=== PATIENT | female | born 1965 | race Caucasian/White ===

== ENCOUNTER 2016-05-02 18:49 | Emergency (ER) | payer OTHER ==
[~2016-05-02] VITALS: Ht 154.9 cm; Wt 91.4 kg
[~2016-05-02 18:49] MED LIST: FLUO10CA48 PO; FLUO40CA8 PO; IBUP-1277 PO; RISP0.5T10 PO; RISP2TAB22 PO
[2016-05-02 19:13] VITALS: TEMP 36.8; Ht 154.9 cm; Wt 91.4 kg
[2016-05-02] MEDS ORDERED: ONDANSETRON INJ 2 MG/ML 2 ML VIAL IV STA (21:07)
[2016-05-02] MEDS ORDERED: PANTOprazole SOD 40 MG TAB PO STA (21:07)
[2016-05-02] MEDS ORDERED: SODIUM CHLORIDE 0.9% 1000ML 1,000 ML IV STA (21:07)
[2016-05-02] MEDS ORDERED: PRLSR20 PO ×2 (21:15→23:13)
--- NOTE | 2016-05-02 21:15 | EMERGENCY ROOM VISIT NOTE ---
History Report prepared by Sarah: Abran De Under the Supervision of: Dr. Valeria Aguirre M.D. First contact with patient: 20:50 Chief Complaint: ABDOMINAL PAIN Stated Complaint: GUT PAIN, VOMITING Nursing Triage Summary: pt c/o abd pain with n/v/d for past 3 months History of Present Illness The patient is a 50 year old female who presents to the Emergency Room with complaints of persistent vomiting that began three months prior to arrival. The patient states that she has had difficulty keeping food down for the past three months. She is also experiencing sharp pains in her upper abdomen, which worsens after eating. She came to the ER tonight because her dry heaving was worsening significantly. She takes 20 mg of Prilosec OTC daily for gastroesophageal reflux disease. The patient is a smoker. 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 A total of 10 systems reviewed and were otherwise negative. Past Medical & Surgical Medical Problems: (1) Bipolar disorder Family History Cancer Diabetes mellitus Gallbladder disease Heart disease Hypertension Lung disease Social History Smoking Status: Current Every Day Smoker Drug Use: none Marital Status: Housing Status: lives with family Current/Historical Medications Scheduled Omeprazole (Prilosec), 20 MG PO DAILY Omeprazole (Prilosec), 20 MG PO BID Ranitidine (Zantac), 150 MG PO BID Scheduled PRN Ibuprofen (Advil), 400-800 MG PO Q6H PRN for Pain or Fever Allergies Coded Allergies: Aspirin (Verified Allergy, Mild, 01/31/16) Penicillins (Verified Allergy, Mild, 01/31/16) Physical Exam Vital Signs Date Time Temp Pulse Resp B/P Pulse Ox O2 Delivery O2 Flow Rate FiO2 05/02/16 22:34 69 16 127/75 96 Room Air 05/02/16 21:23 79 16 126/91 98 Room Air 05/02/16 19:13 36.8 71 18 142/95 95 Room Air Physical Exam Vital signs reviewed. General: Well-appearing middle age woman, in no significant distress. HEENT: No scleral icterus, PERRLA, neck supple. Atraumatic. Cardiovascular: Regular rate and rhythm, no extra sounds. Pulmonary: Clear to auscultation bilaterally, normal work of breathing. Abdomen: Mild epigastric abdominal tenderness, obese abdomen. Positive bowel sounds. Musculoskeletal: Atraumatic, no peripheral edema. Neurologic: Patient awake alert and oriented x 3, full strength in all 4 extremities. Cranial nerves 2 through 12 grossly intact. Skin: Warm, dry, no rash Medical Decision & Procedures ER Provider Diagnostic Interpretation: X-ray results as stated below per my interpretation and radiologist interpretation. Other radiology results as stated below per my review and radiologist interpretation: BILIARY ULTRASOUND CLINICAL HISTORY: RUQ pain, vomiting COMPARISON STUDY: 11/18/2014 FINDINGS: The pancreas appears sonographically normal. The liver is of increased echogenicity, a finding most often seen in hepatic steatosis. No focal hepatic masses are visualized. There is no right-sided hydronephrosis. The common bile duct measures 6 mm. No gallstones are visualized. IMPRESSION: 1. Ultrasonographically pancreas 2. Hepatic steatosis 3. No evidence of pathologic ductal dilatation 4. No gallstones identified. No gallbladder wall thickening. Negative sonographic Harris sign. Electronically signed by: Yassine Gibson M.D. 05/02/2016 10:38 PM Dictated Date/Time: 05/02/2016 10:35 PM Laboratory Results 05/02/16 21:20 Red Blood Count 4.51, Mean Corpuscular Volume 90.2, Mean Corpuscular Hemoglobin 31.0, Mean Corpuscular Hemoglobin Concent 34.4, Mean Platelet Volume 10.1, Neutrophils (%) (Auto) 50.3, Lymphocytes (%) (Auto) 39.4, Monocytes (%) (Auto) 6.9, Eosinophils (%) (Auto) 2.6, Basophils (%) (Auto) 0.7, Neutrophils # (Auto) 4.50, Lymphocytes # (Auto) 3.53, Monocytes # (Auto) 0.62, Eosinophils # (Auto) 0.23, Basophils # (Auto) 0.06 05/02/16 21:20 Test 05/02/16 19:55 05/02/16 21:20 Urine Color YELLOW Urine Appearance CLEAR (CLEAR) Urine pH 6.5 (4.5-7.5) Urine Specific [place] 1.010 (1.000-1.030) Urine Protein NEG (NEG) Urine Glucose (UA) NEG (NEG) Urine Ketones NEG (NEG) Urine Occult Blood TRACE (NEG) Urine Nitrite NEG (NEG) Urine Bilirubin NEG (NEG) Urine Urobilinogen NEG (NEG) Urine Leukocyte Esterase NEG (NEG) Urine WBC (Auto) 1-5 /hpf (0-5) Urine RBC (Auto) 0-4 /hpf (0-4) Urine Hyaline Casts (Auto) 0 /lpf (0-5) Urine Epithelial Cells (Auto) >30 /lpf (0-5) Urine Bacteria (Auto) NEG (NEG) White Blood Count 8.95 K/uL (4.8-10.8) Red Blood Count 4.51 M/uL (4.2-5.4) Hemoglobin 14.0 g/dL (12.0-16.0) Hematocrit 40.7 % (37-47) Mean Corpuscular Volume 90.2 fL (80-100) Mean Corpuscular Hemoglobin 31.0 pg (25-34) Mean Corpuscular Hemoglobin Concent 34.4 g/dl (32-36) Platelet Count 270 K/uL (130-400) Mean Platelet Volume 10.1 fL (7.4-10.4) Neutrophils (%) (Auto) 50.3 % Lymphocytes (%) (Auto) 39.4 % Monocytes (%) (Auto) 6.9 % Eosinophils (%) (Auto) 2.6 % Basophils (%) (Auto) 0.7 % Neutrophils # (Auto) 4.50 K/uL (1.4-6.5) Lymphocytes # (Auto) 3.53 K/uL (1.2-3.4) Monocytes # (Auto) 0.62 K/uL (0.11-0.59) Eosinophils # (Auto) 0.23 K/uL (0-0.5) Basophils # (Auto) 0.06 K/uL (0-0.2) RDW Standard Deviation 40.4 fL (36.4-46.3) RDW Coefficient of Variation 12.2 % (11.5-14.5) Immature Granulocyte % (Auto) 0.1 % Immature Granulocyte # (Auto) 0.01 K/uL (0.00-0.02) Anion Gap 11.0 mmol/L (3-11) Est Creatinine Clear Calc Drug Dose 78.8 ml/min Estimated GFR () 89.4 Estimated GFR (Non- 77.1 BUN/Creatinine Ratio 10.2 (10-20) Calcium Level 9.5 mg/dl (8.5-10.1) Magnesium Level 2.0 mg/dl (1.8-2.4) Total Bilirubin 0.2 mg/dl (0.2-1) Direct Bilirubin < 0.1 mg/dl (0-0.2) Aspartate Amino Transf (AST/SGOT) 22 U/L (15-37) Alanine Aminotransferase (ALT/SGPT) 36 U/L (12-78) Alkaline Phosphatase 77 U/L (45-117) Total Protein 7.6 gm/dl (6.4-8.2) Albumin 3.8 gm/dl (3.4-5.0) Lipase 94 U/L (73-393) Laboratory results per my review. Medications Administered Medications (Trade) Dose Ordered Sig/Jhonathan Route Start Time Stop Time Status Last Admin Dose Admin Sodium Chloride (Nss 1000ml) 1,000 ml @ 999 mls/hr Q1H1M STAT IV 05/02/16 21:07 05/02/16 22:07 DC 05/02/16 21:26 999 MLS/HR Ondansetron HCl (Zofran Inj) 4 mg NOW STAT IV 05/02/16 21:07 05/02/16 21:10 DC 05/02/16 21:29 4 MG Pantoprazole Sodium (Protonix Tab) 40 mg NOW STAT PO 05/02/16 21:07 05/02/16 21:10 DC 05/02/16 21:29 40 MG ED Course 2058: Past medical records reviewed. The patient was evaluated in room A10. A complete history and physical examination was performed. 2106: Ordered Pantoprazole 40 mg PO, Zofran 4 mg IV, Sodium Chloride 1000 mL @ 999 mL/hr IV. 1: Upon reevaluation, the patient appeared to have improvement of her symptoms. I discussed findings with her. She verbalized agreement of the treatment plan. The patient was discharged home. Medical Decision The patient's history was concerning for abdominal pain. Differential diagnosis: Etiologies such as appendicitis, diverticulitis, PUD, biliary pathology, UTI, pancreatitis, obstruction, mesenteric ischemia, aortic pathology, infections, inflammatory bowel disease, renal colic, as well as others were entertained. This patient was evaluated and appeared to be in no significant distress. IV access was obtained and laboratory work was drawn. Ultrasound of right upper quadrant reveals no evidence of acute cholecystitis. Patient was hydrated with normal saline solution and given IV Zofran for her nausea. Patient's laboratory work is fairly unrevealing, urinalysis is negative. Patient was placed on Protonix 40 mg daily. She was given her first dose in the emergency department. Patient was advised to follow-up with [facility] as scheduled. She will increase her Prilosec to 20 mg twice daily. She'll follow-up with gastroenterology as needed for upper endoscopy. Patient will return to the ER for worsening of symptoms or any medical concerns. Impression Primary Impression: Gastritis Scribe Attestation The scribe's documentation has been prepared under my direction and personally reviewed by me in its entirety. I confirm that the note above accurately reflects all work, treatment, procedures, and medical decision making performed by me. Departure Information Dispostion Home / Self-Care Prescriptions Ranitidine (Zantac) 150 Mg Tab 150 MG PO BID, #60 TAB Prov: Valeria Aguirre M.D. 05/02/16 Omeprazole (Prilosec) 20 Mg Capcr 20 MG PO BID, #60 CAP Prov: Valeria Aguirre M.D. 05/02/16 Referrals No Doctor, Assigned (PCP) Forms Call Back Authorization, HOME CARE DOCUMENTATION FORM, IMPORTANT VISIT INFORMATION Patient Instructions [facility] Additional Instructions Diagnosis: Gastritis Increase your Prilosec to 20 mg twice daily. Zantac 300 mg twice daily as needed for continued symptoms. Avoid alcohol, coffee, soda, spicy or greasy foods. Follow-up with [facility] as scheduled this week for reevaluation. You will likely require gastroenterology referral. Return to the emergency department for worsening of symptoms or any medical concerns. Problem Qualifiers Primary Impression: Gastritis Gastritis type: unspecified gastritis Chronicity: acute Gastritis bleeding : without bleeding Qualified Codes: K29.00 - Acute gastritis without bleeding
[2016-05-02 21:23] LABS: MANUAL MICROSCOPIC REQUIRED? NO; REVIEW REQ? NO; URINE APPEARANCE CLEAR (CLEAR); URINE BILIRUBIN NEG (NEG); URINE COLOR YELLOW; URINE EPITHELIAL CELL AUTO >30 /lpf (0-5); URINE NITRITE NEG (NEG); URINE PH 6.5 (4.5-7.5); UROBILINOGEN NEG (NEG); ZZUR CULT IF INDIC CLEAN CATCH NO
[2016-05-02 21:40] LABS: BASO % 0.7 %; BASO ABS # 0.06 K/uL (0-0.2); COMPLETE YES; EOS % 2.6 %; HEMATOCRIT 40.7 % (37-47); IG% 0.1 %; LYMPH % 39.4 %; LYMPH ABS # 3.53 K/uL (1.2-3.4); MEAN CELL VOLUME 90.2 fL (80-100); MEAN CORPUSCULAR HGB CONC 34.4 g/dl (32-36); MEAN PLATELET VOLUME 10.1 fL (7.4-10.4); MONO % 6.9 %; NEUT % 50.3 %; PLATELET COUNT 270 K/uL (130-400); RED BLOOD COUNT 4.51 M/uL (4.2-5.4); WHITE BLOOD COUNT 8.95 K/uL (4.8-10.8)
[2016-05-02 22:13] LABS: ALT/SGPT 36 U/L (12-78); BLOOD UREA NITROGEN 9 mg/dl (7-18); BUN/CREATININE RATIO 10.2 (10-20); CALCIUM 9.5 mg/dl (8.5-10.1); CARBON DIOXIDE 26 mmol/L (21-32); CHLORIDE 106 mmol/L (98-107); CREATININE 0.87 mg/dl (0.60-1.20); GLUCOSE 91 mg/dl (70-99); POTASSIUM 3.8 mmol/L (3.5-5.1); SODIUM 143 mmol/L (136-145)
[2016-05-02 22:16] LABS: ALKALINE PHOSPHATASE 77 U/L (45-117); AST/SGOT 22 U/L (15-37)
[2016-05-02 22:34] VITALS: BP 127/75; PULSE 69; O2SAT 96
--- NOTE | 2016-05-02 22:40 | DIAGNOSTIC IMAGING REPORT ---
BILIARY ULTRASOUND CLINICAL HISTORY: RUQ pain, vomiting COMPARISON STUDY: 11/18/2014 FINDINGS: The pancreas appears sonographically normal. The liver is of increased echogenicity, a finding most often seen in hepatic steatosis. No focal hepatic masses are visualized. There is no right-sided hydronephrosis. The common bile duct measures 6 mm. No gallstones are visualized. IMPRESSION: 1. Ultrasonographically pancreas 2. Hepatic steatosis 3. No evidence of pathologic ductal dilatation 4. No gallstones identified. No gallbladder wall thickening. Negative sonographic Harris sign. Electronically signed by: Yassine Gibson M.D. 05/02/2016 10:38 PM Dictated Date/Time: 05/02/2016 10:35 PM
[2016-05-02] MEDS ORDERED: ZNTT/150 PO (23:13)
== END 2016-05-02 23:21 | disposition home or self-care (01) ==
LOC: C.EDB 18:50 → C.EDA 23:21
DX: K29.00 Acute gastritis without bleeding (principal); K21.9 Gastro-esophageal reflux disease without esophagitis; F31.9 Bipolar disorder, unspecified; F17.200 Nicotine dependence, unspecified, uncomplicated; Z83.3 Family history of diabetes mellitus; Z82.49 Family history of ischemic heart disease and other diseases of the circulatory system

== ENCOUNTER 2017-07-21 11:19 | Emergency (ER) | payer OTHER ==
[~2017-07-21] VITALS: Ht 157.5 cm; Wt 85.8 kg
[~2017-07-21 11:19] MED LIST changes: -FLUO10CA48 PO; -FLUO40CA8 PO; +PRLSR20 PO; -RISP0.5T10 PO; -RISP2TAB22 PO
[2017-07-21 11:32] VITALS: TEMP 36.4; Ht 157.5 cm; Wt 85.8 kg
[2017-07-21] MEDS ORDERED: SODIUM CHLORIDE 0.9% 1000ML 1,000 ML IV STA (12:17)
[2017-07-21] MEDS ORDERED: MoRPHine SULFATE 4 MG/ML 1 ML CARP\\VIAL IV STA (12:17)
[2017-07-21] MEDS ORDERED: ONDANSETRON INJ 2 MG/ML 2 ML VIAL IV STA ×2 (12:17→15:04)
[2017-07-21] MEDS ORDERED: OPTIRAY 320 IV PRN (12:30)
[2017-07-21 12:40] LABS: BASO % 0.6 %; BASO ABS # 0.05 K/uL (0-0.2); EOS % 2.2 %; EOS ABS # 0.17 K/uL (0-0.5); HEMOGLOBIN 13.5 g/dL (12.0-16.0); IG# 0.02 K/uL (0.00-0.02); LYMPH % 37.2 %; MEAN CELL VOLUME 89.9 fL (80-100); MEAN CORPUSCULAR HEMOGLOBIN 31.1 pg (25-34); MEAN CORPUSCULAR HGB CONC 34.6 g/dl (32-36); MEAN PLATELET VOLUME 9.8 fL (7.4-10.4); MONO % 6.9 %; MONO ABS # 0.54 K/uL (0.11-0.59); NEUT % 52.8 %; NEUT ABS # 4.12 K/uL (1.4-6.5); PLATELET COUNT 250 K/uL (130-400); RED CELL DISTRIBUTION WIDTH CV 12.6 % (11.5-14.5); RED CELL DISTRIBUTION WIDTH SD 41.7 fL (36.4-46.3)
[2017-07-21 13:00] LABS: ALBUMIN 4.1 gm/dl (3.4-5.0); CALCIUM 9.4 mg/dl (8.5-10.1); CREATININE 0.95 mg/dl (0.60-1.20); POTASSIUM 3.6 mmol/L (3.5-5.1)
[2017-07-21 13:03] LABS: TOTAL PROTEIN 8.1 gm/dl (6.4-8.2)
[2017-07-21 13:30] VITALS: BP 100/71; PULSE 56; O2SAT 100
[2017-07-21] MEDS ORDERED: ACET-1693 PO (13:40)
[2017-07-21] MEDS ORDERED: GABA600T PO (13:41)
[2017-07-21] MEDS ORDERED: DICL-201 PO (13:41)
[2017-07-21] MEDS ORDERED: LOPE2TAB74 PO (13:41)
[2017-07-21] MEDS ORDERED: PRLSR20 PO (13:41)
[2017-07-21] MEDS ORDERED: TOPI100T20 PO (13:41)
[2017-07-21] MEDS ORDERED: ESCI10TA17 PO (13:41)
--- NOTE | 2017-07-21 13:51 | DIAGNOSTIC IMAGING REPORT ---
ABD/PELVIS IV CONTRAST ONLY CLINICAL HISTORY: 52 years-old Female presenting with lower abd pain . TECHNIQUE: Multidetector CT of the abdomen and pelvis was performed after the administration of intravenous contrast. IV contrast: 94 mL of Optiray 320. A dose lowering technique was used consistent with the principles of ALARA (as low as reasonably achievable). COMPARISON: 12/01/2005 and ultrasound from 05/02/2016. CT DOSE (mGy.cm): The estimated cumulative dose is 968.40 mGycm. 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 Lung bases: Minimal basilar opacities, likely atelectasis. Normal heart size. No pericardial or pleural effusion. Liver: Normal morphology. Density suggestive of hepatic steatosis. No focal lesion. Patent hepatic vasculature. Biliary: No intrahepatic or extrahepatic biliary ductal dilatation. Normal gallbladder. Pancreas: Mild parenchymal atrophy. Spleen: Normal. Adrenal glands: Normal. Kidneys and ureters: Well-defined simple appearing 5.4 cm cyst arising from the anterior aspect of the interpolar region of the left kidney. No other renal lesion. No nephrolithiasis. No hydronephrosis. Ureters normal. Bladder: Incompletely evaluated secondary to underdistention. Pelvic organs: Uterus surgically absent. No adnexal masses. Bowel: Mild wall thickening of the rectal junction suggested, nonspecific. The appendix is normal. No bowel obstruction. Peritoneal cavity: No free fluid or intraperitoneal gas. Lymph nodes: No enlarged lymph nodes in the abdomen or pelvis. Vasculature: Atherosclerosis of the normal caliber abdominal aorta. IVC patent. Circumaortic left renal vein. Abdominal wall: Post surgical changes of the midline ventral abdominal wall. Focal fat containing ventral hernia in the epigastrium with a relatively narrow neck, measuring less than 1 cm. The hernia sac is poorly delineated. An additional hernia sac may be present immediately adjacent to this, also containing fat. Focal atrophy of the right rectus abdominis likely at a prior port site. Musculoskeletal: Bone islands noted in the right hemipelvis. Mild degenerative changes in the lower lumbar spine and lower thoracic spine. IMPRESSION: 1. Mild apparent wall thickening of the anorectal junction, nonspecific and possibly due to underdistention of the lower rectum. Remainder of bowel is normal. 2. Fat-containing ventral midline hernias in the epigastrium. No inflammatory changes to suggest strangulation. 3. Hepatic steatosis. Correlate with liver function tests to exclude steatohepatitis as a cause for abdominal pain. Electronically signed by: Kirk Loredo M.D. 07/21/2017 1:50 PM Dictated Date/Time: 07/21/2017 1:41 PM
--- NOTE | 2017-07-21 18:18 | EMERGENCY ROOM VISIT NOTE ---
History Report prepared by Sarah: Gary Kellogg Under the Supervision of: Dr. To Rivers D.O. First contact with patient: 11:50 Chief Complaint: ABDOMINAL PAIN Stated Complaint: ABDOMINAL PAIN History of Present Illness The patient is a 52 year old female who presents to the Emergency Room with complaints of constant lower abdominal pain beginning yesterday. The patient rates her current pain as a 6/10 in severity. She describes her pain as "sharp" . Her pain travels into her right lower abdomen. The patient's pain is improved with bending forward. She also complains of diarrhea and bloody stool. She has a history of chronic diarrhea, and has had it for her entire life (on Imodium AD daily). The patient began noticing bleeding several hours after her pain began yesterday. She has not passed any blood for about 7 hours. She describes the blood as bright red on the toilet paper when she wipes but with blood clots in the stool. The patient only noticed the clots 8 hours ago. She has a known history of hemorrhoids and diverticulosis. Her most recent colonoscopy was a few months ago. The patient has a history of completely hysterectomy. She is not on any blood thinners. Pt denies headache, change in vision, fevers, chest pain, shortness of breath, nausea, vomiting, pain with urination, and melena. Source of History: patient Onset: Yesterday Position: abdomen (lower) Symptom Intensity: 6/10 Quality: sharp Timing: constant Modifying Factors (Relieving): other (bending forward) Associated Symptoms: + hematochezia, + diarrhea, No fevers, No chest pain, No SOB, No nausea, No vomiting, No urinary symptoms Review of Systems See HPI for pertinent positives & negatives. A total of 10 systems reviewed and were otherwise negative. Past Medical & Surgical Medical Problems: (1) Bipolar disorder Family History Cancer Diabetes mellitus Gallbladder disease Heart disease Hypertension Lung disease Social History Smoking Status: Current Every Day Smoker Drug Use: none Marital Status: Housing Status: lives with family Current/Historical Medications Scheduled Diclofenac (Voltaren), 75 MG PO BID Escitalopram (Lexapro), 10 MG PO DAILY Gabapentin (Neurontin), 600 MG PO HS Omeprazole (Prilosec), 20 MG PO DAILY Topiramate (Topamax), 100 MG PO BID Scheduled PRN Acetaminophen Tab (Tylenol), 325 MG PO Q6 PRN for Pain Loperamide Hcl (Loperamide A-D), 2 MG PO QID PRN for Diarrhea Allergies Coded Allergies: Aspirin (Verified Allergy, Mild, 07/21/17) Penicillins (Verified Allergy, Mild, 07/21/17) Physical Exam Vital Signs Date Time Temp Pulse Resp B/P (MAP) Pulse Ox O2 Delivery O2 Flow Rate FiO2 07/21/17 13:30 56 18 100/71 100 Room Air 07/21/17 11:32 36.4 68 20 132/84 97 Room Air Physical Exam GENERAL: Sitting up in bed, disheveled, appears older than stated age. EYE EXAM: normal conjunctiva. OROPHARYNX: no exudate, no erythema, lips, buccal mucosa, and tongue normal and mucous membranes are moist NECK: supple, no nuchal rigidity, no adenopathy, non-tender LUNGS: Clear to auscultation. Normal chest wall mechanics HEART: no murmurs, S1 normal and S2 normal ABDOMEN: abdomen soft, normo-active bowel sounds, no masses, no rebound or guarding. Old midline incisions. Mild diffuse tenderness in abdomen. BACK: Back is symmetrical on inspection and there is no deformity, no midline tenderness, no CVA tenderness. RECTAL: Heme negative stool. No hemorrhoids or fissures. SKIN: no rashes and no bruising UPPER EXTREMITIES: upper extremities are grossly normal. LOWER EXTREMITIES: No pitting edema. NEURO EXAM: Normal sensorium, cranial nerves II-XII grossly intact, normal speech, no gross weakness of arms, no gross weakness of legs. Medical Decision & Procedures ER Provider Diagnostic Interpretation: Radiology results as stated below per my review and the radiologist's interpretation: ABD/PELVIS IV CONTRAST ONLY FINDINGS: [employer]k Attendant topogram: Unremarkable. Lung bases: Minimal basilar opacities, likely atelectasis. Normal heart size. No pericardial or pleural effusion. Liver: Normal morphology. Density suggestive of hepatic steatosis. No focal lesion. Patent hepatic vasculature. Biliary: No intrahepatic or extrahepatic biliary ductal dilatation. Normal gallbladder. Pancreas: Mild parenchymal atrophy. Spleen: Normal. Adrenal glands: Normal. Kidneys and ureters: Well-defined simple appearing 5.4 cm cyst arising from the anterior aspect of the interpolar region of the left kidney. No other renal lesion. No nephrolithiasis. No hydronephrosis. Ureters normal. Bladder: Incompletely evaluated secondary to underdistention. Pelvic organs: Uterus surgically absent. No adnexal masses. Bowel: Mild wall thickening of the rectal junction suggested, nonspecific. The appendix is normal. No bowel obstruction. Peritoneal cavity: No free fluid or intraperitoneal gas. Lymph nodes: No enlarged lymph nodes in the abdomen or pelvis. Vasculature: Atherosclerosis of the normal caliber abdominal aorta. IVC patent. Circumaortic left renal vein. Abdominal wall: Post surgical changes of the midline ventral abdominal wall. Focal fat containing ventral hernia in the epigastrium with a relatively narrow neck, measuring less than 1 cm. The hernia sac is poorly delineated. An additional hernia sac may be present immediately adjacent to this, also containing fat. Focal atrophy of the right rectus abdominis likely at a prior port site. Musculoskeletal: Bone islands noted in the right hemipelvis. Mild degenerative changes in the lower lumbar spine and lower thoracic spine. IMPRESSION: 1. Mild apparent wall thickening of the anorectal junction, nonspecific and possibly due to underdistention of the lower rectum. Remainder of bowel is normal. 2. Fat-containing ventral midline hernias in the epigastrium. No inflammatory changes to suggest strangulation. 3. Hepatic steatosis. Correlate with liver function tests to exclude steatohepatitis as a cause for abdominal pain. Electronically signed by: Kirk Loredo M.D. 07/21/2017 1:50 PM Laboratory Results 07/21/17 12:31 Red Blood Count 4.34, Mean Corpuscular Volume 89.9, Mean Corpuscular Hemoglobin 31.1, Mean Corpuscular Hemoglobin Concent 34.6, Mean Platelet Volume 9.8, Neutrophils (%) (Auto) 52.8, Lymphocytes (%) (Auto) 37.2, Monocytes (%) (Auto) 6.9, Eosinophils (%) (Auto) 2.2, Basophils (%) (Auto) 0.6, Neutrophils # (Auto) 4.12, Lymphocytes # (Auto) 2.90, Monocytes # (Auto) 0.54, Eosinophils # (Auto) 0.17, Basophils # (Auto) 0.05 07/21/17 12:31 Test 07/21/17 12:00 07/21/17 12:31 Urine Color YELLOW Urine Appearance CLEAR (CLEAR) Urine pH 6.5 (4.5-7.5) Urine Specific [place] 1.017 (1.000-1.030) Urine Protein NEG (NEG) Urine Glucose (UA) NEG (NEG) Urine Ketones NEG (NEG) Urine Occult Blood NEG (NEG) Urine Nitrite NEG (NEG) Urine Bilirubin NEG (NEG) Urine Urobilinogen NEG (NEG) Urine Leukocyte Esterase NEG (NEG) Urine WBC (Auto) 1-5 /hpf (0-5) Urine RBC (Auto) 0-4 /hpf (0-4) Urine Hyaline Casts (Auto) 1-5 /lpf (0-5) Urine Epithelial Cells (Auto) 20-30 /lpf (0-5) Urine Bacteria (Auto) NEG (NEG) Urine Test NEG (NEG) White Blood Count 7.80 K/uL (4.8-10.8) Red Blood Count 4.34 M/uL (4.2-5.4) Hemoglobin 13.5 g/dL (12.0-16.0) Hematocrit 39.0 % (37-47) Mean Corpuscular Volume 89.9 fL (80-100) Mean Corpuscular Hemoglobin 31.1 pg (25-34) Mean Corpuscular Hemoglobin Concent 34.6 g/dl (32-36) Platelet Count 250 K/uL (130-400) Mean Platelet Volume 9.8 fL (7.4-10.4) Neutrophils (%) (Auto) 52.8 % Lymphocytes (%) (Auto) 37.2 % Monocytes (%) (Auto) 6.9 % Eosinophils (%) (Auto) 2.2 % Basophils (%) (Auto) 0.6 % Neutrophils # (Auto) 4.12 K/uL (1.4-6.5) Lymphocytes # (Auto) 2.90 K/uL (1.2-3.4) Monocytes # (Auto) 0.54 K/uL (0.11-0.59) Eosinophils # (Auto) 0.17 K/uL (0-0.5) Basophils # (Auto) 0.05 K/uL (0-0.2) RDW Standard Deviation 41.7 fL (36.4-46.3) RDW Coefficient of Variation 12.6 % (11.5-14.5) Immature Granulocyte % (Auto) 0.3 % Immature Granulocyte # (Auto) 0.02 K/uL (0.00-0.02) Anion Gap 7.0 mmol/L (3-11) Est Creatinine Clear Calc Drug Dose 69.6 ml/min Estimated GFR () 79.3 Estimated GFR (Non- 68.4 BUN/Creatinine Ratio 14.1 (10-20) Calcium Level 9.4 mg/dl (8.5-10.1) Total Bilirubin 0.4 mg/dl (0.2-1) Direct Bilirubin 0.1 mg/dl (0-0.2) Aspartate Amino Transf (AST/SGOT) 22 U/L (15-37) Alanine Aminotransferase (ALT/SGPT) 37 U/L (12-78) Alkaline Phosphatase 97 U/L (45-117) Total Protein 8.1 gm/dl (6.4-8.2) Albumin 4.1 gm/dl (3.4-5.0) Lipase 82 U/L (73-393) Laboratory results per my review. Medications Administered Medications (Trade) Dose Ordered Sig/Jhonathan Route Start Time Stop Time Status Last Admin Dose Admin Sodium Chloride 1,000 ml @ 999 mls/hr Q1H1M STAT IV 07/21/17 12:17 07/21/17 13:17 DC 07/21/17 12:42 999 MLS/HR Ondansetron HCl (Zofran Inj) 4 mg NOW STAT IV 07/21/17 12:17 07/21/17 12:19 DC 07/21/17 12:41 4 MG Morphine Sulfate (MoRPHine SULFATE INJ) 4 mg NOW STAT IV 07/21/17 12:17 07/21/17 12:19 DC 07/21/17 12:41 4 MG ED Course ED COURSE: Vital signs were reviewed and appeared normal. The patients medical record was reviewed The above diagnostic studies were performed and reviewed. ED treatments and interventions as stated above. 1210: The patient was evaluated in room C12B. A complete history and physical examination was performed. 1217: Ordered Morphine Sulfate 4 mg IV, Zofran Inj 4 mg IV, Sodium Chloride 1000 ml @ 999 mls/hr IV. 1500: Upon reevaluation, the patient is resting comfortably. I discussed my findings with the patient and she understands and agrees with the treatment plan. She is upset as she has been having chronic abdominal pain for several months. Based on the patients age, coexisting illnesses, exam and lab findings the decision to treat as an outpatient was made. The patient remained stable while under my care. The patient appeared well at the time of discharge. Medical Decision Differential diagnoses includes but is not limited to gastritis, peptic ulcer disease, GERD, gallbladder disease, pancreatitis, small bowel obstruction, acute coronary syndrome, pericarditis, ischemic bowel, irritable bowel disease, irritable bowel syndrome, appendicitis, diverticulitis, malignancy, hernia, urinary tract infection, torsion, /ectopic , perforation, trauma, infectious. Patient is a 52-year-old female who presents the ER for abdominal pain which started yesterday around 2 AM. She does note however that she does have a component which is been there for the past several months. She had an episode of clots which she passed from 3 PM to 5 PM yesterday. She also had bright red blood when she wiped. She has not had any bleeding since then. Recent scope agrees with this was unremarkable per her report. Abdominal exam is benign. Vitals are stable. Hemoglobin is normal. No leukocytosis. BMP along with LFTs , bilirubin lipase is normal. UA was negative. negative. CT abdomen pelvis was fairly unremarkable with exception of possible thickening of the anal rectal junction. Discuss with GI. They recommend following up as an outpatient and they will evaluate her within the week. Patient was given IV narcotics and fluids while in the ER. She did feel better. She was upset as she had no clear answer to her persistent belly pain which has been present for the past several months which she initially stated was only present for the past 2 days. Discussed with Pt concerning signs and symptoms to watch out for. Pt was instructed to follow up with their PCP and discussed with the patient their option to return to the ED at anytime for persistent or worsening symptoms. The appropriate anticipatory guidance and out-patient management, including indications for return to the emergency department, were explained at length to the patient and understood. Medication Reconcilliation Current Medication List: was personally reviewed by me Blood Pressure Screening Patient's blood pressure: Normal blood pressure Blood pressure disposition: Did not require urgent referral Consults Time Called: 1450 Consulting Physician: Lilliana Roberto [facility] Returned Call: [phone] I reviewed the patient's case with Lilliana GAUTHIER. She feels the patient would be safe for discharge with outpatient follow up. Impression Primary Impression: GI bleed Additional Impression: Abdominal pain Scribe Attestation The scribe's documentation has been prepared under my direction and personally reviewed by me in its entirety. I confirm that the note above accurately reflects all work, treatment, procedures, and medical decision making performed by me. Departure Information Dispostion Home / Self-Care Referrals No Doctor, Assigned (PCP) Forms Call Back Authorization, HOME CARE DOCUMENTATION FORM, IMPORTANT VISIT INFORMATION Patient Instructions Abdominal Pain - [facility], My [facility] Additional Instructions Please follow up with your primary care doctor with in the next 24 hours. Any worsening of your symptoms, please return to the ED immediately. This includes any fevers greater than 100.4, worsening pain, chest pain, shortness breath, persistent nausea, vomiting, unable to eat or drink, or any other concerning signs or symptoms from your standpoint. Please follow-up with GI within the next week. Any recurrence of the bleeding i.e. passing clots, dark tarry stools or bright red blood per rectum please return immediately to the ER. Please take Tylenol as needed for pain. Problem Qualifiers Primary Impression: GI bleed GI bleed type/associated pathology: unspecified gastrointestinal hemorrhage type Qualified Codes: K92.2 - Gastrointestinal hemorrhage, unspecified Additional Impression: Abdominal pain Abdominal location: unspecified location Qualified Codes: R10.9 - Unspecified abdominal pain
== END 2017-07-21 15:18 | disposition home or self-care (01) ==
LOC: C.EDB 11:23 → C.EDC 15:18
DX: K92.2 Gastrointestinal hemorrhage, unspecified (principal); R10.84 Generalized abdominal pain; K52.9 Noninfective gastroenteritis and colitis, unspecified; K64.9 Unspecified hemorrhoids; K57.90 Diverticulosis of intestine, part unspecified, without perforation or abscess without bleeding; F31.9 Bipolar disorder, unspecified; F17.200 Nicotine dependence, unspecified, uncomplicated; Z88.6 Allergy status to analgesic agent; Z88.0 Allergy status to penicillin; Z83.3 Family history of diabetes mellitus; Z82.49 Family history of ischemic heart disease and other diseases of the circulatory system; Z83.79 Family history of other diseases of the digestive system; Z83.6 Family history of other diseases of the respiratory system